=== PATIENT | male | born 1950 | race Caucasian/White ===

== ENCOUNTER 2018-07-17 15:36 | Emergency (ER) | payer MEDICARE ==
[2018-07-17] MEDS ORDERED: SODIUM CHLORIDE 0.9% 1,000 ML IV ONE (15:59)
[2018-07-17] MEDS ORDERED: KETOROLAC 60 MG/2 ML VIAL IVP STA (15:59)
[2018-07-17] MEDS ORDERED: DEXAMETHASONE 10 MG/ML VIAL IV STA (15:59)
[2018-07-17 16:20] LABS: BASOPHILS % (AUTO) 0.6 %; EOSINOPHILS # (AUTO) 0.2 10^3/uL (0.0-0.7); EOSINOPHILS % (AUTO) 2.6 %; HGB - HEMOGLOBIN 11.9 g/dL (14.0-18.0); LYMPHOCYTES # (AUTO) 1.2 10^3/uL (1.5-3.5); LYMPHOCYTES % (AUTO) 19.4 %; MEAN CORPUSCULAR HEMOGLOBIN 30.4 pg (27.0-31.0); MEAN CORPUSCULAR HGB CONC 33.5 g/dL (32.0-36.0); MEAN CORPUSCULAR VOLUME 90.8 fL (80.0-94.0); MEAN PLATELET VOLUME 8.6 fL (7.4-11.4); MONOCYTES # (AUTO) 0.4 10^3/uL (0.0-1.0); MONOCYTES % (AUTO) 6.9 %; NEUTROPHILS # (AUTO) 4.2 10^3/uL (1.5-6.6); NEUTROPHILS % (AUTO) 70.5 %; PLT - PLATELET COUNT 223 10^3/uL (130-450); RED CELL DISTRIBUTION WIDTH 13.7 % (12.0-15.0); WHITE BLOOD COUNT 5.9 x10^3/uL (4.8-10.8)
[2018-07-17 16:30] LABS: ALBUMIN 3.6 g/dL (3.2-5.5); ALBUMIN/GLOBULIN RATIO 1.1 (1.0-2.2); BILIRUBIN,TOTAL 0.8 mg/dL (0.2-1.0); CALCIUM 8.9 mg/dL (8.5-10.3); CREATININE 0.9 mg/dL (0.6-1.2)
--- NOTE | 2018-07-17 16:34 | ED Physician Documentation ---
PD HPI NECK PAIN - Stated complaint Stated Complaint: NECK PX - Chief complaint Chief Complaint: General - History obtained from History obtained from: Patient - History of Present Illness Timing - onset: How many weeks ago (1) Timing - duration: Weeks (1) Timing - details: Abrupt onset, Still present Location: Lower, Right Quality: Pain, Spasm, Sharp Associated symptoms: No: Fever, Weakness, Numbness, Incontinent of urine, Unable to urinate, Hematuria, Incontinent of stool Improves with: Rest, Ice, Position, Meds Worsened by: Movement Contributing factors: Trauma Similar symptoms before: Has not had sx before Recently seen: Not recently seen - Additional information Additional information: 67 y/o male had a near syncopal episode after standing and fell against the wall and injured his neck. He did not loose consciousness when he hit his head. He has had pain in his neck since and the pain has been making it difficult to do his usual things. He has been taking some aleve and ibuprofen withou relief. He denies any numbness or weakness to the right arm or shoulder. He has been having some trouble with dizziness on standing for months and has had abnormal orthostatics documented in the clinic. He reports adequate PO fluid intake but he does drink 2- 3 beers per day. Review of Systems Constitutional: denies: Fever, Chills, Myalgias Eyes: denies: Decreased vision Ears: denies: Ear pain Nose: denies: Rhinorrhea / runny nose, Congestion Throat: denies: Sore throat Cardiac: denies: Chest pain / pressure, Palpitations Respiratory: denies: Dyspnea, Cough GI: denies: Abdominal Pain, Nausea, Vomiting : denies: Dysuria, Frequency Skin: denies: Rash, Lesions, Abrasion (s) Musculoskeletal: denies: Neck pain, Back pain, Extremity pain Neurologic: reports: Near syncope, Other (dizziness on standing). denies: Generalized weakness, Focal weakness, Numbness PD PAST MEDICAL HISTORY - Past Medical History Past Medical History: Yes Endocrine/Autoimmune: Type 1 diabetes GI: GERD HEENT: Chronic vision loss - Past Surgical History Past Surgical History: Yes Ortho: Rotator cuff repair, Other - Present Medications Home Medications: Ambulatory Orders Medication Instructions Recorded Confirmed Cyclobenzaprine [Flexeril] 10 mg PO TID PRN #20 tablet 07/17/18 HYDROcod/ACETAM 5/325 [[place] 5/325] 1 - 2 ea PO Q6H PRN #15 tablet 07/17/18 Insulin Glargine [Lantus Solostar] 16 units SQ DAILY 07/17/18 07/17/18 Insulin Lispro [Humalog] See Protocol SQ TID 07/17/18 07/17/18 Omeprazole 20 mg ORAL DAILY 07/17/18 07/17/18 Simvastatin 20 mg ORAL DAILY 07/17/18 07/17/18 Trazodone HCl 50 mg ORAL DAILY 07/17/18 07/17/18 - Allergies Allergies/Adverse Reactions: Allergies Allergy/AdvReac Type Severity Reaction Status Date / Time No Known Drug Allergies Allergy Verified 07/17/18 15:58 - Social History Does the pt smoke?: No Smoking Status: Never smoker Does the pt drink ETOH?: Yes ETOH Use: Beer Does the pt have substance abuse?: No - Immunizations Immunizations are current?: Yes - POLST Patient has POLST: No PD ED PE NORMAL - Vitals Vital signs reviewed: Yes (hypertensive ) - General General: Alert and oriented X 3, No acute distress, Well developed/nourished - HEENT HEENT: Atraumatic, PERRL, EOMI, Other (both TM's are partially occluded by cerumen. The visualized portions of the TM are normal. ) - Neck Neck: Supple, no meningeal sign, No bony TTP - Cardiac Cardiac: RRR, No murmur - Respiratory Respiratory: No respiratory distress, Clear bilaterally - Abdomen Abdomen: Normal bowel sounds, Soft, Non tender - Back Back: No CVA TTP, No spinal TTP - Derm Derm: Normal color, Warm and dry, No rash - Extremities Extremities: No deformity, No edema - Neuro Neuro: Alert and oriented X 3, business objects architect 2-12 intact, No motor deficit, No sensory deficit, Normal speech Eye Opening: Spontaneous Motor: Obeys Commands Verbal: Oriented GCS Score: 15 - Psych Psych: Normal mood, Normal affect Results - Vitals Vitals: Vital Signs - 24 hr 07/17/18 15:40 Temperature 37 C Heart Rate 72 Respiratory 16 Rate Blood Pressure 154/69 H O2 Saturation 99 Oxygen O2 Source Room air - Labs Labs: Laboratory Tests 07/17/18 07/17/18 07/17/18 16:10 16:10 16:10 WBC 5.9 RBC 3.90 L Hgb 11.9 L Hct 35.4 L MCV 90.8 MCH 30.4 MCHC 33.5 RDW 13.7 Plt Count 223 MPV 8.6 Neut # (Auto) 4.2 Lymph # (Auto) 1.2 L [place] # (Auto) 0.4 Eos # (Auto) 0.2 Baso # (Auto) 0.0 Absolute Nucleated RBC 0.00 Nucleated RBC % 0.0 Sodium 134 L Potassium 4.3 Chloride 101 Carbon Dioxide 25 Anion Gap 8.0 BUN 20 Creatinine 0.9 Estimated GFR (MDRD) 84 L Glucose 348 H Glycated Hemoglobin Estim Average Glucose Calcium 8.9 Total Bilirubin 0.8 AST 17 ALT 14 Alkaline Phosphatase 56 Troponin I < 0.04 Total Protein 7.0 Albumin 3.6 Globulin 3.4 Albumin/Globulin Ratio 1.1 Lipase 19 L Urine Color Urine Clarity Urine pH Ur Specific [place] Urine Protein Urine Glucose (UA) Urine Ketones Urine Occult Blood Urine Nitrite Urine Bilirubin Urine Urobilinogen Ur Leukocyte Esterase Ur Microscopic Review Urine Culture Comments Serum Ketones 07/17/18 07/17/18 07/17/18 16:10 16:10 16:44 WBC RBC Hgb Hct MCV MCH MCHC RDW Plt Count MPV Neut # (Auto) Lymph # (Auto) [place] # (Auto) Eos # (Auto) Baso # (Auto) Absolute Nucleated RBC Nucleated RBC % Sodium Potassium Chloride Carbon Dioxide Anion Gap BUN Creatinine Estimated GFR (MDRD) Glucose Glycated Hemoglobin 8.5 H Estim Average Glucose 197 H Calcium Total Bilirubin AST ALT Alkaline Phosphatase Troponin I Total Protein Albumin Globulin Albumin/Globulin Ratio Lipase Urine Color YELLOW Urine Clarity CLEAR Urine pH 7.0 Ur Specific [place] <=1.005 Urine Protein NEGATIVE Urine Glucose (UA) >=1000 H Urine Ketones NEGATIVE Urine Occult Blood NEGATIVE Urine Nitrite NEGATIVE Urine Bilirubin NEGATIVE Urine Urobilinogen 0.2 (NORMAL) Ur Leukocyte Esterase NEGATIVE Ur Microscopic Review NOT INDICATED Urine Culture Comments NOT INDICATED Serum Ketones NEGATIVE - Rads (name of study) CT cervical spine Radiology: Prelim report reviewed (Impression: 1. No fracture or acute abnormality. 2. spondylosis with degenerative disc and facet disease, as detailed above. There is evidence of associated at least mild canal stenosis at C3-3 and C3 and bony neural foraminal narrowing, greatest at C3-4.), EMP read indepedently, See rad report Procedures - IVC sono (time) 7747 Bedside IVC sono: IVC measures (cm) (1.02), IVC collapsed c insp (cm) (complete), Dehydration (est 1-2 liter deficit) PD MEDICAL DECISION MAKING - ED course Complexity details: reviewed results, re-evaluated patient, considered differential, d/w patient ED course: 67 y/o male with dizziness for months on standing has had a fall and neck pain. He is found to be dehydrated on interrogation of the IVC and he is administered IV saline. He is diabetic and sugar has been running high and he is administered IV regular insulin 5 units. His diagnostic imaging studies show some spinal stenosis and he will need to follow up with his primary. He is prescribed hydrocodone and flexeril. Departure - Departure Disposition: 01 Home, Self Care Clinical Impression: Dehydration Cervical strain, acute Qualifiers: Encounter type: initial encounter Qualified Code(s): S16.1XXA - Strain of muscle, fascia and tendon at neck level, initial encounter Condition: Stable Instructions: ED Sprain Strain Neck, ED Dehydration Prescriptions: Cyclobenzaprine [Flexeril] 10 mg PO TID PRN #20 tablet PRN Reason: Spasms HYDROcod/ACETAM 5/325 [[place] 5/325] 1 - 2 ea PO Q6H PRN #15 tablet PRN Reason: Pain
[2018-07-17] MEDS ORDERED: INSULIN REGULAR HUMAN 100 UNIT/1 ML 10 ML MDV IVP STA (16:52)
[2018-07-17 16:56] LABS: BILIRUBIN,URINE NEGATIVE (NEGATIVE); GLUCOSE, URINE (UA) >=1000 mg/dL (NEGATIVE); KETONES,URINE (UA) NEGATIVE (NEGATIVE); LEUKOCYTE ESTERASE, URINE NEGATIVE (NEGATIVE); NITRITE,URINE NEGATIVE (NEGATIVE); OCCULT BLOOD,URINE NEGATIVE (NEGATIVE); PROTEIN,URINE NEGATIVE (NEGATIVE); UROBILINOGEN,URINE 0.2 (NORMAL) E.U./dL (NORMAL)
[2018-07-17 17:02] LABS: CLARITY,URINE CLEAR (CLEAR)
[2018-07-17 17:08] LABS: HB2 TOTAL 12.6 g/dL; HEMOGLOBIN A1C 0.88 g/dL; HEMOGLOBIN A1C % 8.5 % (4.6-6.2)
--- NOTE | 2018-07-17 17:16 | CT Report ---
Reason: fall neck pain right lower side persistent Procedure Date: 07/17/2018 Accession Number: [id number] / [id number] Procedure: CT - Cervical Spine W/O CPT Code: FULL RESULT: EXAM: CT CERVICAL SPINE WITHOUT CONTRAST DATE: 07/17/2018 04:29 PM. HISTORY: Fall neck pain right lower side persistent. . Fell 7+ days ago, persistent pain and numbness lt COMPARISONS: None. TECHNIQUE: Thin-section axial images were acquired of the cervical spine without contrast. Post-processing: Coronal and sagittal reformats. Other: None. In accordance with CT protocol optimization, one or more of the following dose reduction techniques were utilized for this exam: automated exposure control, adjustment of mA and/or KV based on patient size, or use of iterative reconstructive technique. FINDINGS: Alignment: No scoliosis or spondylolisthesis. Bones: No fracture or bone lesion. Interspace Levels/Facets: Moderate C3-C4 disk space narrowing. Multilevel mild to moderate facet degenerative disease. Mild to moderate multilevel vertebral body spurring. Bridging intervertebral spurring/ossification at C6-T3. There is prominent posterior, midline C2-C3 vertebral body spurring or ligamentous ossification which causes anterior epidural encroachment and narrowing of the AP canal dimension to 6-7 mm. Disk osteophyte complex at C3-C4 with asymmetric prominent vertebral/uncovertebral spurring on the right at C3-C4 resulting in an asymmetric mild canal stenosis and lateral recess encroachment and moderate to severe right and moderate left C3-C4 neuroforaminal narrowing. Central AP canal diameter measures approximately 7 mm. Mild to moderate left C2-C3 and right C4-C5 bony neural foraminal narrowing. Musculature: Normal. No fatty atrophy. Other: No prevertebral soft tissue swelling. Superior mediastinal lymph nodes, maximum short axis is 7 mm. No viktor adenopathy. Substantial bilateral carotid arterial calcifications. The lung apices are clear. IMPRESSION: 1. No fracture or acute abnormality. 2. Spondylosis with degenerative disk and facet disease, as detailed above. There is evidence of associated at least mild canal stenosis at C2-C3 and C3-C4 and bony neural foraminal narrowing, greatest at C3-C4. RADIA
[2018-07-17 18:03] VITALS: BP 136/68
== END 2018-07-17 18:09 | disposition home or self-care (01) ==
LOC: ED 15:36
DX: E86.0 Dehydration (principal); S16.1XXA Strain of muscle, fascia and tendon at neck level, initial encounter; W18.30XA Fall on same level, unspecified, initial encounter; W22.09XA Striking against other stationary object, initial encounter; H61.23 Impacted cerumen, bilateral; E10.9 Type 1 diabetes mellitus without complications
CPT/HCPCS: 36415; 72125; 80053; 81003; 82009; 83036; 83690; 84484; 85025; 96361; 96374; 99284; J1815; 81001; 87086

== ENCOUNTER 2020-02-01 18:16 | Outpatient (CLI) | payer MEDICARE | END 2020-02-01 18:17 | disposition home or self-care (01) | LOC: COV 18:16 | PROVIDERS: ATTEND Family Medicine | DX: R06.02 Shortness of breath (principal); M79.10 Myalgia, unspecified site; R53.83 Other fatigue; R19.7 Diarrhea, unspecified | CPT/HCPCS: 81599 ==

== ENCOUNTER 2021-05-18 15:02 | Emergency (ER) | payer MEDICARE ==
[2021-05-18 15:40] LABS: BASOPHILS # (AUTO) 0.1 10^3/uL (0.0-0.1); EOSINOPHILS # (AUTO) 0.2 10^3/uL (0.0-0.7); EOSINOPHILS % (AUTO) 3.3 %; HCT - HEMATOCRIT 33.1 % (42.0-52.0); HGB - HEMOGLOBIN 10.9 g/dL (14.0-18.0); LYMPHOCYTES # (AUTO) 1.4 10^3/uL (1.5-3.5); LYMPHOCYTES % (AUTO) 27.9 %; MEAN CORPUSCULAR HEMOGLOBIN 30.9 pg (27.0-31.0); MEAN CORPUSCULAR HGB CONC 32.9 g/dL (32.0-36.0); MEAN CORPUSCULAR VOLUME 93.8 fL (80.0-94.0); MEAN PLATELET VOLUME 10.4 fL (7.4-11.4); MONOCYTES # (AUTO) 0.4 10^3/uL (0.0-1.0); MONOCYTES % (AUTO) 7.8 %; NEUTROPHILS # (AUTO) 3.1 10^3/uL (1.5-6.6); NEUTROPHILS % (AUTO) 59.8 %; PLT - PLATELET COUNT 213 10^3/uL (130-450); RED BLOOD COUNT 3.53 10^6/uL (4.70-6.10); RED CELL DISTRIBUTION WIDTH 13.4 % (12.0-15.0); WHITE BLOOD COUNT 5.1 x10^3/uL (4.8-10.8)
[2021-05-18 15:56] LABS: ALBUMIN 3.9 g/dL (3.2-5.5); ALBUMIN/GLOBULIN RATIO 1.3 (1.0-2.2); BILIRUBIN,TOTAL 0.9 mg/dL (0.2-1.0); CREATININE 1.1 mg/dL (0.6-1.2); POTASSIUM 4.8 mmol/L (3.5-5.0)
--- NOTE | 2021-05-18 16:48 | ED Physician Documentation ---
PD HPI SYNCOPE - Stated complaint Stated Complaint: DIZZINESS/WEAKNESS - Chief complaint Chief Complaint: Neuro - History obtained from History obtained from: Patient - Additional information Additional information: 70-year-old gentleman with longstanding diabetes for 60 years has had 2 episodes of syncope, 1 2 weeks ago, and one a week ago. Both had short premonition with periods with maybe 5 seconds of warning. The first when he was of fast food restaurant and fell and hit a glass case and he feels like he injured his neck and his neck is been hurting ever since. The other one was about a week ago, no injury at that time. No associated chest pain or trouble breathing. No associated pedal edema or calf pain. Review of Systems Ten Systems: 10 systems reviewed and negative Constitutional: reports: Reviewed and negative Cardiac: reports: Reviewed and negative Respiratory: reports: Reviewed and negative PD PAST MEDICAL HISTORY - Past Medical History Past Medical History: Yes Cardiovascular: None Respiratory: None Neuro: Peripheral neuropathy Endocrine/Autoimmune: Type 1 diabetes GI: GERD : None HEENT: Chronic vision loss Psych: None Musculoskeletal: Osteoarthritis Derm: None - Past Surgical History Past Surgical History: Yes Ortho: Rotator cuff repair, Other - Present Medications Home Medications: Ambulatory Orders Medication Instructions Recorded Confirmed Insulin Glargine [Lantus Solostar] 16 units SQ DAILY 07/17/18 05/18/21 Insulin Lispro [Humalog] See Protocol SQ TID 07/17/18 05/18/21 Omeprazole 20 mg ORAL DAILY 07/17/18 05/18/21 Simvastatin 20 mg ORAL HS 07/17/18 05/18/21 Trazodone HCl 50 mg ORAL HS 07/17/18 05/18/21 Aspirin EC [Ecotrin] 81 mg PO DAILY 05/18/21 05/18/21 Cholecalciferol [Vitamin D3] 25 mcg PO DAILY 05/18/21 05/18/21 HYDROcod/ACETAM 5/325 [[place] 5/325] 1 - 2 tab PO Q6H PRN #15 tablet 05/18/21 Multivitamin 1 tab ORAL DAILY 05/18/21 05/18/21 - Allergies Allergies/Adverse Reactions: Allergies Allergy/AdvReac Type Severity Reaction Status Date / Time No Known Drug Allergies Allergy Verified 05/18/21 15:16 - Social History Does the pt smoke?: No Smoking Status: Former smoker Does the pt drink ETOH?: Yes ETOH Use: Beer Does the pt have substance abuse?: No - Immunizations Immunizations are current?: Yes - POLST Patient has POLST: No PD ED PE NORMAL - Vitals Vital signs reviewed: Yes - General General: Alert and oriented X 3, No acute distress - HEENT HEENT: PERRL, EOMI - Neck Neck: Supple, no meningeal sign, No bony TTP - Cardiac Cardiac: RRR, No murmur - Respiratory Respiratory: No respiratory distress, Clear bilaterally - Abdomen Abdomen: Normal bowel sounds, Soft, Non tender - Back Back: No CVA TTP, No spinal TTP - Derm Derm: Normal color, Warm and dry - Extremities Extremities: No edema, No calf tenderness / cord - Neuro Neuro: Alert and oriented X 3, Normal speech Results - Vitals Vitals: Vital Signs - 24 hr 05/18/21 05/18/21 05/18/21 15:11 16:26 16:36 Temperature 36.4 C L 36.3 C L Heart Rate 62 64 Heart Rate [ 70 Sitting] Heart Rate [ 66 Standing] Heart Rate [ 62 Supine] Respiratory 16 18 Rate Blood Pressure 148/74 H 144/75 H Blood Pressure 170/115 H [Sitting] Blood Pressure 159/69 H [Standing] Blood Pressure 142/69 H [Supine] O2 Saturation 99 100 05/18/21 18:03 Temperature 37 C Heart Rate 67 Heart Rate [ Sitting] Heart Rate [ Standing] Heart Rate [ Supine] Respiratory 16 Rate Blood Pressure 149/75 H Blood Pressure [Sitting] Blood Pressure [Standing] Blood Pressure [Supine] O2 Saturation 100 Oxygen O2 Source Room air - Labs Labs: Laboratory Tests 05/18/21 05/18/21 05/18/21 15:36 15:36 15:36 WBC 5.1 RBC 3.53 L Hgb 10.9 L Hct 33.1 L MCV 93.8 MCH 30.9 MCHC 32.9 RDW 13.4 Plt Count 213 MPV 10.4 Neut # (Auto) 3.1 Lymph # (Auto) 1.4 L [place] # (Auto) 0.4 Eos # (Auto) 0.2 Baso # (Auto) 0.1 Absolute Nucleated RBC 0.00 Nucleated RBC % 0.0 Sodium 136 Potassium 4.8 Chloride 103 Carbon Dioxide 27 Anion Gap 6.0 BUN 19 Creatinine 1.1 Estimated GFR (MDRD) 66 L Glucose 207 H Calcium 9.0 Total Bilirubin 0.9 AST 19 ALT 17 Alkaline Phosphatase 44 Troponin I High Sens 4.8 Total Protein 7.0 Albumin 3.9 Globulin 3.1 Albumin/Globulin Ratio 1.3 Lipase 25 PD MEDICAL DECISION MAKING - ED course ED course: Orthostatics negative Twelve-lead EKG done at 1520 hrs. discloses normal sinus rhythm with no ST or T wave changes. Rate is 62. I disagree with the computer reading which states "minimal ST elevation in inferior leads" 70-year-old gentleman with 2 syncopal episodes but the last one was a week ago. Work-up here was negative and no ectopy on the monitor. His main concern was neck pain, and a CT was done showing degenerative changes with spinal stenosis but nothing suggestive of acute trauma. Other than pain he has no symptoms such as upper extremity radicular issues to suggest symptomatic spinal stenosis. Discussed with him that he needed to follow-up with his primary care physician and discuss stress testing and/or echocardiography and return if he syncopized again. He is anemic, but not much worse than prior labs. He has iron supplements at home and plans to start taking them. Departure - Departure Disposition: Home, Self Care Clinical Impression: Cervical strain, acute Qualifiers: Encounter type: initial encounter Qualified Code(s): S16.1XXA - Strain of muscle, fascia and tendon at neck level, initial encounter Syncope Qualifiers: Syncope type: unspecified Qualified Code(s): R55 - Syncope and collapse Condition: Good Record reviewed to determine appropriate education?: Yes Instructions: ED Fainting Unkn Cause Follow-Up: Savanah Pressley MD [Primary Care Provider] - Prescriptions: HYDROcod/ACETAM 5/325 [[place] 5/325] 1 - 2 tab PO Q6H PRN #15 tablet PRN Reason: Pain Comments: CT scans of the head and cervical spine do not demonstrate any evidence of recent trauma. You do have arthritis in your neck which causes some spinal stenosis. For the syncope, nothing is really showing up here except for moderate anemia which does not look new necessarily based on old labs, I would recommend you follow-up with Dr. Pressley, consider stress testing and/or echocardiography. Return if it happens again. Prescription sent electronically to [facility] in [place] I am prescribing a short course of narcotic pain medication for you. These are potentially dangerous and addictive medications that should be used carefully. These medications may constipate you. Take an [id number] stool softener (docusate) twice daily with plenty of water while taking these medications. If you go 24 hours without a bowel movement, take [id number] miralax, per package instructions. Do not drink or drive while taking these medications. If you received narcotic or sedating medications while in the emergency department, do not drive for 24 hours. Store this medication in a safe, secure place and out of reach of children. It is a violation of federal law to give or sell this medication to another person or to use in a manner other than prescribed. The ED will not refill narcotic prescriptions, including prescriptions lost or stolen. To dispose of unwanted medications: 1. [facility] [address] in [place] has a medication drop box. They accept prescription medications (in pill form) Thursday through Thursday 9:00 a.m. to 5:00 p.m. 2. The [facility] accepts prescription medications (in pill form only) for disposal year round. Call for more information. 3. Contact the [facility] for the next [facility] sponsored prescription drug collection event. , [phone], or [phone]; Note that many narcotic pain relievers also contain Tylenol/acetaminophen. Please ensure that your total dose of acetaminophen from all sources does not exceed 3 g (3000 mg) per day. Discharge Date/Time: 05/18/21 18:06
--- NOTE | 2021-05-18 17:26 | CT Report ---
PROCEDURE: HEAD WO INDICATIONS: head injury/neck injury TECHNIQUE: Noncontrast 4.5 mm thick angled axial sections acquired from the foramen magnum to the vertex. For r adiation dose reduction, the following was used: automated exposure control, adjustment of mA and/or kV according to patient size. COMPARISON: None. FINDINGS: Image quality: Excellent. CSF spaces: Basal cisterns are patent. No extra-axial fluid collections. Ventricles are normal in size and shape. Brain: No midline shift. No intracranial masses or hemorrhage. Enriquez-white matter interface is norm al. Skull and face: Calvarium and visualized facial bones are intact, without suspicious lesions. Sinuses: Visualized sinuses and mastoids are clear. IMPRESSION: No acute intracranial abnormality. Reviewed by: Tyron Boland on 05/18/2021 4:24 PM [place] Approved by: Tyron Boland on 05/18/2021 4:24 PM [place] Station ID: [id number]
--- NOTE | 2021-05-18 17:33 | CT Report ---
PROCEDURE: CERVICAL SPINE WO INDICATIONS: head injury/neck injury TECHNIQUE: Noncontrast 3 mm thick sections acquired from the skull base to the T4 level. Sagittal and coronal r eformats were then constructed. For radiation dose reduction, the following was used: automated exp osure control, adjustment of mA and/or kV according to patient size. COMPARISON: CT cervical spine July 17, 2018. FINDINGS: Image quality: Excellent. Bones: No fractures or dislocations. Multilevel intervertebral disc height loss and facet arthrosis . There is also ossification of the posterior longitudinal ligament focally at the C2-3 level which m oderately narrows the AP diameter of the spinal canal. Visualized superior ribs are intact. Soft tissues: Prevertebral soft tissues are normal in thickness. No paravertebral hematomas. No ap ical pneumothoraces. Calcification of the carotid arteries. IMPRESSION: 1. No acute cervical spine fracture or traumatic malalignment. 2. Multilevel cervical spondylosis. 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 Reviewed by: Tyron Boland on 05/18/2021 4:32 PM [place] Approved by: Tyron Boland on 05/18/2021 4:32 PM [place] Station ID: [id number]
[2021-05-18] MEDS ORDERED: HYDROcod/ACET 5/325 Prepack 4 PO STA (17:43)
[2021-05-18 18:03] VITALS: BP 149/75
== END 2021-05-18 18:06 | disposition home or self-care (01) ==
LOC: ED 15:02
DX: R55 Syncope and collapse (principal); S16.1XXA Strain of muscle, fascia and tendon at neck level, initial encounter; W18.39XA Other fall on same level, initial encounter; Y92.511 Restaurant or cafe as the place of occurrence of the external cause; D64.9 Anemia, unspecified; M47.812 Spondylosis without myelopathy or radiculopathy, cervical region; M48.02 Spinal stenosis, cervical region; E10.42 Type 1 diabetes mellitus with diabetic polyneuropathy; Z79.82 Long term (current) use of aspirin; Z87.891 Personal history of nicotine dependence
CPT/HCPCS: 36415; 80053; 83690; 84484; 85025; 93005; 99284

== ENCOUNTER 2021-08-08 08:00 | Outpatient (CLI) | payer MEDICARE ==
[2021-08-08 15:57] LABS: BILIRUBIN,URINE NEGATIVE (NEGATIVE); GLUCOSE, URINE (UA) 500 mg/dL (NEGATIVE); KETONES,URINE (UA) NEGATIVE (NEGATIVE); LEUKOCYTE ESTERASE, URINE NEGATIVE (NEGATIVE); NITRITE,URINE NEGATIVE (NEGATIVE); OCCULT BLOOD,URINE NEGATIVE (NEGATIVE); PROTEIN,URINE NEGATIVE (NEGATIVE); UROBILINOGEN,URINE 0.2 (NORMAL) E.U./dL (NORMAL)
[2021-08-08 16:05] LABS: CLARITY,URINE CLEAR (CLEAR)
[2021-08-08 16:25] LABS: CREATININE,URINE 132.3 mg/dL; MICROALBUM/CREATININE RATIO,UR 32.5 ug/mg (<30.0); MICROALBUMIN,URINE 4.3 mg/dL (0-300.0)
== END 2021-08-08 23:59 | disposition home or self-care (01) ==
LOC: LAB.R 08:00
PROVIDERS: ATTEND Internal Medicine
DX: E10.9 Type 1 diabetes mellitus without complications (principal); R80.9 Proteinuria, unspecified; R39.9 Unspecified symptoms and signs involving the genitourinary system
CPT/HCPCS: 81001; 81003; 82043; 82570; 87086

== ENCOUNTER 2021-09-03 09:39 | Outpatient (CLI) | payer MEDICARE ==
--- NOTE | 2021-09-03 16:57 | MRI Report ---
PROCEDURE: Cervical Spine W/O INDICATIONS: Neck pain TECHNIQUE: Noncontrast sagittal T1 spin echo and T2 fast spin echo, sagittal STIR, foraminal oblique sagittal T2 fast spin echo, and axial gradient echo or T2 fast spin echo through the cervical spine. COMPARISON: 05/18/2021 CT cervical spine FINDINGS: Normal cervical spine vertebral body height and alignment. No suspicious focal marrow signal abnormal ity or bone marrow edema. Normal morphology and signal intensity of the cervical cord. There is no sy rinx. Regional soft tissues are grossly unremarkable in the absence of IV contrast. C2-C3: Posterior disc osteophyte complex flattens the ventral cord producing moderate spinal canal s tenosis. Facet and uncovertebral hypertrophy produce mild neural foraminal narrowing on the left. C3-C4: Moderate to severe spinal canal stenosis due to posterior disc-osteophyte complex flattening the ventral cord and posteriorly displacing the cord. There is also buckling of the ligamentum flavu m which flattens the cord dorsally. There is overall near complete circumferential effacement of CSF. No associated cord signal abnormality. Severe right and moderate left neural foraminal stenosis due to facet and uncovertebral hypertrophy. C4-C5: Mild spinal canal stenosis due to posterior disc ossify complex and ligamentum flavum. Severe right and moderate left neural foraminal stenosis due to facet and uncovertebral hypertrophy. C5-C6: No spinal canal stenosis. Mild neural foraminal narrowing on the left. C6-C7: No spinal canal or neural foraminal stenosis. C7-T1: No spinal canal or neural foraminal stenosis. IMPRESSION: Etlqfhpg-[id number] spinal canal stenosis at C3-C4. Moderate spinal canal stenosis at C2-C3. Varying degrees of neural foraminal stenosis, severe on the right at C3-C4 and on the right at C4-C5. Reviewed by: José Miguel Proctor MD on 09/03/2021 4:56 PM PST Approved by: José Miguel Proctor MD on 09/03/2021 4:56 PM PST Station ID: [id number]
== END 2021-09-03 09:40 | disposition home or self-care (01) ==
LOC: DI 09:39
PROVIDERS: ATTEND Internal Medicine
DX: M54.2 Cervicalgia (principal); M48.02 Spinal stenosis, cervical region

== ENCOUNTER 2021-10-20 09:58 | Emergency (ER) | payer MEDICARE ==
--- NOTE | 2021-10-20 10:38 | ED Physician Documentation ---
PD HPI BACK PAIN - Stated complaint Stated Complaint: RIB/BACK PX - Chief complaint Chief Complaint: Trauma Ch/Bk - History obtained from History obtained from: Patient - History of Present Illness Timing - onset: Last night (he states he felt lightheaded when got up to go to the bathroom, his knees/legs lost strength bilaterally and he fell, striking left flank he thought on edge of tub. Pain locally left lower ribs.) Timing - duration: Hours (12-15) Timing - details: Abrupt onset, Still present Location: Lower, Left (posterolateral lower ribs painful with palpation, movement and breathing.) Quality: Pain, Sharp Associated symptoms: No: Fever, Weakness, Numbness Worsened by: Movement, Palpation, Other (deep breathing) Contributing factors: Trauma (fall with direct impact.) Similar symptoms before: Has not had sx before Recently seen: Not recently seen Review of Systems Constitutional: denies: Fever, Chills Nose: denies: Rhinorrhea / runny nose, Congestion Throat: denies: Sore throat Respiratory: denies: Cough GI: denies: Abdominal Pain, Nausea, Vomiting, Diarrhea Skin: denies: Abrasion (s), Laceration (s) Neurologic: denies: Focal weakness, Numbness, Altered mental status, Headache, Head injury PD PAST MEDICAL HISTORY - Past Medical History Cardiovascular: None Respiratory: None Neuro: Peripheral neuropathy Endocrine/Autoimmune: Type 1 diabetes GI: GERD : None HEENT: Chronic vision loss Psych: None Musculoskeletal: Osteoarthritis Derm: None - Past Surgical History Past Surgical History: Yes Ortho: Rotator cuff repair, Other - Present Medications Home Medications: Ambulatory Orders Medication Instructions Recorded Confirmed Insulin Glargine [Lantus Solostar] 10 units SQ DAILY 07/17/18 10/20/21 Insulin Lispro [Humalog] See Protocol SQ TID 07/17/18 10/20/21 Omeprazole 20 mg ORAL DAILY 07/17/18 10/20/21 Simvastatin 20 mg ORAL HS 07/17/18 10/20/21 Trazodone HCl 50 mg ORAL HS 07/17/18 10/20/21 Aspirin EC [Ecotrin] 81 mg PO DAILY 05/18/21 10/20/21 Cholecalciferol [Vitamin D3] 25 mcg PO DAILY 05/18/21 10/20/21 Multivitamin 1 tab ORAL DAILY 05/18/21 10/20/21 Acetaminophen [Acetaminophen Extra 500 mg PO QID PRN #50 tablet 10/20/21 Strength] Naproxen 500 mg PO BID #20 tab.sr 10/20/21 oxyCODONE [Roxicodone] 5 mg PO Q6H PRN #15 tablet 10/20/21 - Allergies Allergies/Adverse Reactions: Allergies Allergy/AdvReac Type Severity Reaction Status Date / Time No Known Drug Allergies Allergy Verified 10/20/21 10:15 - Social History Does the pt smoke?: No Smoking Status: Former smoker Does the pt drink ETOH?: Yes Does the pt have substance abuse?: No - Immunizations Immunizations are current?: Yes - POLST Patient has POLST: No PD ED PE NORMAL - Vitals Vital signs reviewed: Yes - General General: Alert and oriented X 3, Well developed/nourished, Other (appears in discomfort with movement and breathing, with pain posterolateral lower ribs and CVA area. No noted bruising. ) - HEENT HEENT: PERRL, Moist mucous membranes, Pharynx benign - Neck Neck: Supple, no meningeal sign, No adenopathy, C-Spine cleared by NEXUS criteria - Cardiac Cardiac: RRR - Respiratory Respiratory: No respiratory distress, Clear bilaterally - Abdomen Abdomen: Normal bowel sounds, Soft, Non tender, Non distended - Back Back: No spinal TTP - Derm Derm: Normal color, Warm and dry - Extremities Extremities: No tenderness to palpate, Normal ROM s pain, No edema, No calf tenderness / cord - Neuro Neuro: Alert and oriented X 3, No motor deficit, No sensory deficit, Normal speech Eye Opening: Spontaneous Motor: Obeys Commands Verbal: Oriented GCS Score: 15 Results - Vitals Vitals: Vital Signs - 24 hr 10/20/21 10/20/21 10/20/21 10:09 10:37 12:29 Temperature 36.2 C L 37 C Heart Rate 84 75 66 Respiratory 24 17 16 Rate Blood Pressure 122/46 L 136/62 H 134/62 H O2 Saturation 100 100 99 10/20/21 14:20 Temperature Heart Rate 68 Respiratory 18 Rate Blood Pressure 143/71 H O2 Saturation 99 Oxygen O2 Source Room air - Labs Labs: Laboratory Tests 10/20/21 10/20/21 11:15 11:15 WBC 7.9 RBC 3.71 L Hgb 11.5 L Hct 34.8 L MCV 93.8 MCH 31.0 MCHC 33.0 RDW 13.2 Plt Count 186 MPV 10.5 Neut # (Auto) 6.4 Lymph # (Auto) 0.9 L Garza # (Auto) 0.6 Eos # (Auto) 0.1 Baso # (Auto) 0.0 Absolute Nucleated RBC 0.00 Nucleated RBC % 0.0 Sodium 134 L Potassium 4.3 Chloride 102 Carbon Dioxide 24 Anion Gap 8.0 BUN 20 Creatinine 0.8 Estimated GFR (MDRD) 95 Glucose 148 H Calcium 8.7 Magnesium 1.8 Total Bilirubin 0.7 AST 23 ALT 18 Alkaline Phosphatase 39 L Total Protein 6.5 L Albumin 3.7 Globulin 2.8 Albumin/Globulin Ratio 1.3 Lipase 21 L - Rads (name of study) chest CT Radiology: Prelim report reviewed, Discussed with rads (nondisplaced fractures left ribs 11 and 12, and also rim apical PTX. ), See rad report PD MEDICAL DECISION MAKING - ED course Complexity details: reviewed results (patient is 12-18 hours s/p fall with rib fractures and small apical PTX. Sats are good. WOuld not expect suddent change at this point, so repeat CXR in 12-18 hours. ), re-evaluated patient (pain much improved with meds here. ), considered differential, d/w patient, d/w wallpaper consultant (talked with surgery gynaecological oncologist, who felt follow up outpt is reasonable.) ED course: NO real mechanism for f/u in office and getting CXR< so will have him return to ER tomorrow for recheck symptoms, sats, and CXR (does not need repeat CT). Departure - Departure Disposition: 01 Home, Self Care Clinical Impression: Postural dizziness with near syncope Chest wall contusion Qualifiers: Encounter type: initial encounter Laterality: left Qualified Code(s): S20.212A - Contusion of left front wall of thorax, initial encounter Rib fractures Qualifiers: Encounter type: initial encounter Fracture type: closed Laterality: left Qualified Code(s): S22.42XA - Multiple fractures of ribs, left side, initial encounter for closed fracture Pneumothorax Qualifiers: Pneumothorax type: traumatic Encounter type: initial encounter Qualified Code(s): S27.0XXA - Traumatic pneumothorax, initial encounter Condition: Stable Record reviewed to determine appropriate education?: Yes Instructions: ED Fx Rib, ED Pneumothorax Blunt Trauma Follow-Up: Savanah Pressley MD [Primary Care Provider] - Prescriptions: Acetaminophen [Acetaminophen Extra Strength] 500 mg PO QID PRN #50 tablet PRN Reason: Pain Naproxen 500 mg PO BID #20 tab.sr oxyCODONE [Roxicodone] 5 mg PO Q6H PRN #15 tablet PRN Reason: Pain Comments: The CT scan showed fractures of the lowest ribs #11 and 12 back in the area you are hurting. There is also is a small pneumothorax which is air outside of the lung from a partial puncture of some air sacs in the lung near the injury. The pneumothorax is quite small and should absorb on its own over several days. The chest wall and rib pain will be most prominently sore for the first week or so when then gradually resolve over about a month. Activity as tolerated but in particular no vigorous activity, heavy lifting, push pull or such for the first week or so. Walking and light activity is okay. Use some anti-inflammatory such as naproxen twice daily with food for the next 7 to 10 days. To that add Tylenol every 4-6 hours regularly for pain. To that add oxycodone every 6 hours if needed for worse pain. We would like to ensure that the pneumothorax is not getting bigger within the next day or so. Return to the ER tomorrow morning to let them know you are here for follow-up x-ray for the pneumothorax. Meanwhile if you have increasing pain or trouble breathing lightheadedness or other concerns before then, return to the ER. I transmitted your prescriptions to [facility] pharmacy in [place]. I am prescribing a short course of narcotic pain medication for you. These are potentially dangerous and addictive medications that should be used carefully. These medications may constipate you. Take an [id number] stool softener such as docusate twice daily with plenty of water while taking these medications. If you go 24 hours without a bowel movement, take [id number] MiraLAX, per package instructions. Do not drink or drive while taking these medications. If you received narcotic or sedating medications while in the emergency department do not drive for 24 hours. Store this medication in a safe, secure place and out of reach of children. It is a violation of federal law to give or sell this medication to another person or to use in a manner other than prescribed. The ED will not refill narcotic prescriptions, including prescriptions lost or stolen. You can dispose of unwanted medications at the [facility]'s office or at several pharmacies such as [facility]. Discharge Date/Time: 10/20/21 14:35
[2021-10-20] MEDS: ACETAMINOPHEN 325 MG TABLET PO STA (11:18)
[2021-10-20] MEDS: KETOROLAC 30 MG/ML VIAL IVP STA (11:19)
[2021-10-20] MEDS: MORPHINE 2 MG/ML CARPUJECT IVP STA (11:20)
[2021-10-20 11:23] LABS: BASOPHILS % (AUTO) 0.3 %; EOSINOPHILS # (AUTO) 0.1 10^3/uL (0.0-0.7); EOSINOPHILS % (AUTO) 0.6 %; HCT - HEMATOCRIT 34.8 % (42.0-52.0); HGB - HEMOGLOBIN 11.5 g/dL (14.0-18.0); LYMPHOCYTES # (AUTO) 0.9 10^3/uL (1.5-3.5); LYMPHOCYTES % (AUTO) 10.7 %; MEAN CORPUSCULAR VOLUME 93.8 fL (80.0-94.0); MEAN PLATELET VOLUME 10.5 fL (7.4-11.4); MONOCYTES # (AUTO) 0.6 10^3/uL (0.0-1.0); MONOCYTES % (AUTO) 7.3 %; NEUTROPHILS # (AUTO) 6.4 10^3/uL (1.5-6.6); NEUTROPHILS % (AUTO) 80.8 %; PLT - PLATELET COUNT 186 10^3/uL (130-450); RED BLOOD COUNT 3.71 10^6/uL (4.70-6.10); RED CELL DISTRIBUTION WIDTH 13.2 % (12.0-15.0); WHITE BLOOD COUNT 7.9 x10^3/uL (4.8-10.8)
[2021-10-20 11:37] LABS: ALBUMIN 3.7 g/dL (3.2-5.5); ALBUMIN/GLOBULIN RATIO 1.3 (1.0-2.2); BILIRUBIN,TOTAL 0.7 mg/dL (0.2-1.0); CALCIUM 8.7 mg/dL (8.5-10.3); CREATININE 0.8 mg/dL (0.6-1.2); MAGNESIUM 1.8 mg/dL (1.7-2.8); POTASSIUM 4.3 mmol/L (3.5-5.0); TOTAL PROTEIN 6.5 g/dL (6.7-8.2)
[2021-10-20] MEDS ORDERED: iohexoL-300 100 ML VIAL ONE (12:01)
[2021-10-20] MEDS: iohexoL-300 100 ML VIAL IVP ONE (12:20)
--- NOTE | 2021-10-20 13:29 | CT Report ---
PROCEDURE: CT chest with contrast INDICATIONS: fall with injury left lower ribs/chest CONTRAST: IV CONTRAST: Isovue 300 ml: 100 PO CONTRAST: *NO PO CONTRAST TECHNIQUE: After the administration of intravenous contrast, 1 mm axial images were acquired from the pulmonary apices through the posterior costophrenic angles. Axial 5 mm soft tissue kernel reconstructions were performed as well as 8 mm axial MIP and coronal and sagittal 5 mm reformations. For radiation dose reduction, the following was used: automated exposure control, adjustment of mA and/or kV according to patient size. COMPARISON: None. FINDINGS: Image quality: Excellent. Lungs and pleura: Small pulmonary contusion left lower lobe associated with left 11th 12th rib fractu res. Tiny left-sided associated pneumothorax measures 6 mm in thickness. Right lung and pleural space clear. Mediastinum: Heart size is normal. No pericardial effusion. No mediastinal or hilar adenopathy by size criteria. Thoracic aorta and central pulmonary arteries are normal in size. Esophagus is amy l in caliber. No hiatal hernia. Bones and chest wall: Comminuted left posterior lateral 12th rib fracture. Additional displaced left 11th rib fracture. Underlying pulmonary edema reflects small contusion. Old healed left posterior lat eral fractures noted as well. Abdomen: Visualized upper abdominal solid organs appear normal. Upper abdominal bowel loops are nor mal in caliber. IMPRESSION: 1. Displaced left 11th and 12th rib fractures associated with this tiny left anterior hydropneumothor ax and small pulmonary contusion. 2. Additional left-sided old healed rib fractures. Note: Critical results were discussed with Dr. Parra at 12:26 PM AK time on 10/20/2021 Reviewed by: Rickey Naik MD on 10/20/2021 12:27 PM AKST Approved by: Rickey Naik MD on 10/20/2021 12:27 PM AKST Station ID: [id number]
[2021-10-20 14:21] VITALS: BP 143/71
== END 2021-10-20 14:35 | disposition home or self-care (01) ==
LOC: ED 09:58
DX: S22.42XA Multiple fractures of ribs, left side, initial encounter for closed fracture (principal); S27.0XXA Traumatic pneumothorax, initial encounter; S27.321A Contusion of lung, unilateral, initial encounter; S20.212A Contusion of left front wall of thorax, initial encounter; W18.39XA Other fall on same level, initial encounter; W22.09XA Striking against other stationary object, initial encounter; Y93.01 Activity, walking, marching and hiking; Y92.002 Bathroom of unspecified non-institutional (private) residence as the place of occurrence of the external cause; R42 Dizziness and giddiness; R55 Syncope and collapse; E10.42 Type 1 diabetes mellitus with diabetic polyneuropathy; Z79.4 Long term (current) use of insulin; Z79.82 Long term (current) use of aspirin; Z87.891 Personal history of nicotine dependence
CPT/HCPCS: 36415; 71260; 80053; 83690; 83735; 85025; 93005; 96374; 96375; 99284; A9270; Q9967

== ENCOUNTER 2021-10-21 14:16 | Emergency (ER) | payer MEDICARE ==
[2021-10-21 14:27] VITALS: BP 148/49
--- NOTE | 2021-10-21 14:50 | XRAY Report ---
PROCEDURE: Chest 2 View X-Ray INDICATIONS: re-eval ptx TECHNIQUE: 2 view(s) of the chest. COMPARISON: Reference is made to the CT chest dated October 20, 2021. FINDINGS: SUPPORT DEVICES: None. LUNGS/PLEURA: Right pleural thickening/scarring. Coarsened interstitial markings. Small left upper pn eumothorax, measuring up to 1.2 cm in width. No focal consolidation or pleural effusion. MEDIASTINUM: The cardiomediastinal silhouette is within normal limits. BONES/SOFT TISSUES: No acute abnormality. Left eighth and ninth rib fractures. IMPRESSION: 1.Persistent left apical pneumothorax. Reviewed by: Erik Patel MD on 10/21/2021 2:48 PM PST Approved by: Erik Patel MD on 10/21/2021 2:48 PM PST Station ID: [id number]
--- NOTE | 2021-10-21 15:01 | ED Physician Documentation ---
History of Present Illness - Stated complaint Stated Complaint: FOLLOWUP FROM YESTERDAY - Chief complaint Chief Complaint: Resp - History obtained from History obtained from: Patient - Additonal information Additional information: The patient comes to the emergency department chief complaint of here for recheck of pneumothorax". The patient was seen yesterday after a fall 1940 8 hours prior which resulted in left 11th and 12th rib fractures and a small left pneumothorax. The patient states his breathing is not any worse and in fact, he has never had any breathing complaints. He states that he was not able to picker and sorter load and unload his pain medication from the pharmacy yesterday, however, and that he continues to have pain in his ribs, which is worsening. Patient denies any cough or fever. No new injury. He denies any other complaints at this time. Review of Systems Ten Systems: 10 systems reviewed and negative Constitutional: reports: Reviewed and negative Eyes: reports: Reviewed and negative Ears: reports: Reviewed and negative Nose: reports: Reviewed and negative Throat: reports: Reviewed and negative Cardiac: reports: Chest pain / pressure Respiratory: reports: Reviewed and negative. denies: Dyspnea, Cough GI: reports: Reviewed and negative : reports: Reviewed and negative Skin: reports: Reviewed and negative Musculoskeletal: reports: Reviewed and negative Neurologic: reports: Reviewed and negative Psychiatric: reports: Reviewed and negative Endocrine: reports: Reviewed and negative Immunocompromised: reports: Reviewed and negative PD PAST MEDICAL HISTORY - Past Medical History Cardiovascular: None Respiratory: None Neuro: Peripheral neuropathy Endocrine/Autoimmune: Type 1 diabetes GI: GERD : None HEENT: Chronic vision loss Psych: None Musculoskeletal: Osteoarthritis Derm: None - Past Surgical History Past Surgical History: Yes Ortho: Rotator cuff repair, Other - Present Medications Home Medications: Ambulatory Orders Medication Instructions Recorded Confirmed Insulin Glargine [Lantus Solostar] 10 units SQ DAILY 07/17/18 10/20/21 Insulin Lispro [Humalog] See Protocol SQ TID 07/17/18 10/20/21 Omeprazole 20 mg ORAL DAILY 07/17/18 10/20/21 Simvastatin 20 mg ORAL HS 07/17/18 10/20/21 Trazodone HCl 50 mg ORAL HS 07/17/18 10/20/21 Aspirin EC [Ecotrin] 81 mg PO DAILY 05/18/21 10/20/21 Cholecalciferol [Vitamin D3] 25 mcg PO DAILY 05/18/21 10/20/21 Multivitamin 1 tab ORAL DAILY 05/18/21 10/20/21 Acetaminophen [Acetaminophen Extra 500 mg PO QID PRN #50 tablet 10/20/21 Strength] Naproxen 500 mg PO BID #20 tab.sr 10/20/21 oxyCODONE [Roxicodone] 5 mg PO Q6H PRN #15 tablet 10/20/21 - Allergies Allergies/Adverse Reactions: Allergies Allergy/AdvReac Type Severity Reaction Status Date / Time No Known Drug Allergies Allergy Verified 10/21/21 14:24 - Social History Does the pt smoke?: No Smoking Status: Former smoker Does the pt drink ETOH?: Yes Does the pt have substance abuse?: No - Immunizations Immunizations are current?: Yes - POLST Patient has POLST: No PD ED PE NORMAL - Vitals Vital signs reviewed: Yes - General General: Alert and oriented X 3, No acute distress, Well developed/nourished - HEENT HEENT: Atraumatic, PERRL, EOMI, Moist mucous membranes - Neck Neck: Supple, no meningeal sign - Cardiac Cardiac: RRR, No murmur, Strong equal pulses - Respiratory Respiratory: No respiratory distress, Clear bilaterally - Derm Derm: Normal color, Warm and dry, No rash - Extremities Extremities: No deformity, No edema - Neuro Neuro: Alert and oriented X 3, 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 This did not appear to be significantly changed since yesterday, and since the patient had no respiratory complaints and good oxygen saturation, I felt he was stable for discharge home. We have discussed that the patient should picker and sorter load and unload his pain medication at the pharmacy soon as possible, so he can have good pain control and breathe more deeply to avoid pneumonia. We discussed that the patient begins to have increasing shortness of breath, he should return to the emergency department immediately. Otherwise, he may follow-up as needed with his primary care physician. Departure - Departure Disposition: 01 Home, Self Care Clinical Impression: Pneumothorax on left Condition: Stable Instructions: ED Pneumothorax Blunt Trauma Comments: Your chest x-ray shows essentially unchanged pneumothorax on the left compared with yesterday. The pneumothorax continues to be very small, and will most likely resolve on its own. It is very important that you try to keep your rib p ain under control so you can breathe more deeply and avoid getting pneumonia, which is the other common complication of rib fractures. Please picker and sorter load and unload your pain medication at the pharmacy today. If you develop fevers, or if you begin to have increasingly severe shortness of breath, please return to the emergency department immediately. You have been treated with narcotic pain medication in the emergency department today. Please do not drive for the next 8 hours. Discharge Date/Time: 10/21/21 15:06
[2021-10-21] MEDS: ONDANSETRON ODT 4 MG TABLET TL STA (15:06)
[2021-10-21] MEDS: oxyCODONE 5 MG TABLET PO STA (15:06)
== END 2021-10-21 15:06 | disposition home or self-care (01) ==
LOC: ED 14:16
DX: J93.9 Pneumothorax, unspecified (principal); Z87.891 Personal history of nicotine dependence
CPT/HCPCS: 71046; 99282; 99283; A9270; Q0162

== ENCOUNTER 2022-01-14 08:00 | Outpatient (CLI) | payer MEDICARE ==
[2022-01-14 16:20] LABS: BASOPHILS % (AUTO) 0.8 %; EOSINOPHILS # (AUTO) 0.2 10^3/uL (0.0-0.7); EOSINOPHILS % (AUTO) 3.4 %; HCT - HEMATOCRIT 36.2 % (42.0-52.0); HGB - HEMOGLOBIN 11.5 g/dL (14.0-18.0); LYMPHOCYTES # (AUTO) 1.6 10^3/uL (1.5-3.5); LYMPHOCYTES % (AUTO) 31.8 %; MEAN CORPUSCULAR HGB CONC 31.8 g/dL (32.0-36.0); MEAN CORPUSCULAR VOLUME 94.5 fL (80.0-94.0); MEAN PLATELET VOLUME 11.1 fL (7.4-11.4); MONOCYTES # (AUTO) 0.4 10^3/uL (0.0-1.0); NEUTROPHILS # (AUTO) 2.9 10^3/uL (1.5-6.6); NEUTROPHILS % (AUTO) 56.6 %; PLT - PLATELET COUNT 246 10^3/uL (130-450); RED BLOOD COUNT 3.83 10^6/uL (4.70-6.10); RED CELL DISTRIBUTION WIDTH 13.7 % (12.0-15.0)
[2022-01-14 16:44] LABS: ALBUMIN 3.8 g/dL (3.2-5.5); ALBUMIN/GLOBULIN RATIO 1.2 (1.0-2.2); ALKALINE PHOSPHATASE 51 IU/L (42-121); ALT ALANINE AMINOTRANSFERASE 15 IU/L (10-60); AST ASPARTATE AMINOTRANSFERASE 19 IU/L (10-42); BILIRUBIN,TOTAL 0.9 mg/dL (0.2-1.0); BUN - BLOOD UREA NITROGEN 23 mg/dL (6-20); CALCIUM 9.3 mg/dL (8.5-10.3); CARBON DIOXIDE - CO2 26 mmol/L (21-32); CHLORIDE 101 mmol/L (101-111); CHOLESTEROL 181 mg/dL; CK- CREATINE KINASE 64 IU/L (22-269); GFR - MDRD 73 (>89); GLUCOSE 308 mg/dL (70-100); HDL CHOLESTEROL 90 mg/dL; LDL CHOLESTEROL,CALCULATED 76 mg/dL; LDL/HDL RATIO 0.8 (<3.6); POTASSIUM 4.7 mmol/L (3.5-5.0); SODIUM 133 mmol/L (135-145); TRIGLYCERIDES 76 mg/dL; VLDL CHOLESTEROL 15 mg/dL
[2022-01-14 16:51] LABS: CREATININE,URINE 131.2 mg/dL; MICROALBUM/CREATININE RATIO,UR 17.5 ug/mg (<30.0); MICROALBUMIN,URINE 2.3 mg/dL (0-300.0)
[2022-01-14 21:27] LABS: ESTIMATED AVERAGE GLUCOSE 163 mg/dL (70-100); HEMOGLOBIN A1c% 7.3 % (4.27-6.07)
== END 2022-01-14 08:01 | disposition home or self-care (01) ==
LOC: LAB.R 08:00
PROVIDERS: ATTEND Internal Medicine
DX: Z00.00 Encounter for general adult medical examination without abnormal findings (principal); D64.9 Anemia, unspecified; E10.9 Type 1 diabetes mellitus without complications; Z86.010 Personal history of colon polyps
CPT/HCPCS: 80053; 80061; 82043; 82550; 82570; 83036; 83721; 84443; 85025

== ENCOUNTER 2022-07-10 14:55 | Outpatient (CLI) | payer MEDICARE ==
[2022-07-10 16:11] LABS: CALCIUM 9.7 mg/dL (8.5-10.3); CREATININE 0.9 mg/dL (0.6-1.2); POTASSIUM 4.2 mmol/L (3.5-5.0)
[2022-07-10 20:03] LABS: ESTIMATED AVERAGE GLUCOSE 163 mg/dL (70-100); HEMOGLOBIN A1c% 7.3 % (4.27-6.07)
== END 2022-07-10 23:59 | disposition home or self-care (01) ==
LOC: LAB.R 14:55
PROVIDERS: ATTEND Internal Medicine
DX: E10.9 Type 1 diabetes mellitus without complications (principal); M54.2 Cervicalgia
CPT/HCPCS: 80048; 83036

== ENCOUNTER 2022-09-29 10:44 | Outpatient (CLI) | payer MEDICARE ==
--- NOTE | 2022-09-29 12:35 | Ultrasound Report ---
PROCEDURE: Head or Neck Soft Tissue INDICATIONS: MASS OF NECK TECHNIQUE: Real time scanning was performed of the neck region of interest, with image documentation . COMPARISON: None. FINDINGS: There is a focus of decreased echogenicity posterior to the air within the right lower neck approximately 3 mm below the skin surface. There is mild appearance of increased vascularity. Border line prominent adjacent lymph nodes are present largest measuring 8 mm. IMPRESSION: Focus of decreased echogenicity within the area of concern with increased vascularity. Is overall non specific. This could represent a focus of infection or inflammation such as abscess. Borderline enlar ged lymph nodes are present suggestive to be reactive in nature. However, recommend interval follow-u p to document resolution and exclude presence of underlying mass lesion of potential noninfectious/no ninflammatory etiology. Reviewed by: Kandi Saini MD on 09/29/2022 12:34 PM PST Approved by: Kandi Saini MD on 09/29/2022 12:34 PM PST Station ID: [id number]
== END 2022-09-29 10:45 | disposition home or self-care (01) ==
LOC: DI 10:44
PROVIDERS: ATTEND Internal Medicine
DX: R22.1 Localized swelling, mass and lump, neck (principal)

== ENCOUNTER 2022-12-22 13:07 | Outpatient (CLI) | payer MEDICARE ==
--- NOTE | 2022-12-22 15:34 | XRAY Report ---
PROCEDURE: Ribs Bilat w/Chest 4 View INDICATIONS: PALPITATIONS TECHNIQUE: 4 views of the right ribs were acquired, along with a single view chest. COMPARISON: None FINDINGS: Surgical changes and devices: Generator projects over the left chest wall.. Bones and chest wall: No acute fractures or dislocations. Chronic left eighth and ninth posterior r ib fractures. No suspicious bony lesions. Overlying soft tissues appear unremarkable. Lungs and pleura: No pleural effusions or pneumothorax. Lungs appear clear. Mediastinum: Mediastinal contours appear normal. Heart size is normal. IMPRESSION: No acute, displaced rib fracture. Reviewed by: Hermelindo Calix on 12/22/2022 3:33 PM PDT Approved by: Hermelindo Calix on 12/22/2022 3:33 PM PDT Station ID: [id number]
== END 2022-12-22 13:08 | disposition home or self-care (01) ==
LOC: DI 13:07
PROVIDERS: ATTEND Internal Medicine
DX: R00.2 Palpitations (principal)

== ENCOUNTER 2024-05-19 06:21 | Day surgery (SDC) | payer MEDICARE ==
[2024-05-19] MEDS: LACTATED RINGERS 1,000 ML IV ONE ×2 (07:01→08:14)
[2024-05-19] MEDS ORDERED: PROPOFOL 500 MG/50 ML 500 MG/50 ML VIAL ONE (07:13)
[2024-05-19] MEDS ORDERED: LIDOCAINE-MPF 2% 5 ML VIAL ONE (07:13)
--- NOTE | 2024-05-19 07:26 | ANESTHESIA ---
Pre-Anesthesia VS, & Labs - Diagnosis colon polyp history - Procedure colonoscopy Vital Signs: Temp Pulse Resp BP Pulse Ox O2 Flow Rate 36.3 C L 87 17 102/53 L 99 05/19/24 06:30 05/19/24 06:30 05/19/24 06:30 05/19/24 06:30 05/19/24 06:30 Height: 6 ft 1 in Weight (kg): 73.1 kg Body Mass Index: 21.2 BMI Classification: Normal - NPO Other (prep as directed) - Lab Results Current Lab Results: Laboratory Tests 05/19/24 06:47: POC Whole Bld Glucose 238 H Home Medications and Allergies Insulin Glargine [Lantus Solostar] 10 units SQ DAILY 07/17/18 Insulin Lispro [Humalog] See Protocol SQ TID 07/17/18 Simvastatin 20 mg ORAL HS 07/17/18 Trazodone HCl 50 mg ORAL HS 07/17/18 Aspirin EC [Ecotrin] 81 mg PO DAILY 05/18/21 Cholecalciferol [Vitamin D3] 25 mcg PO DAILY 05/18/21 Multivitamin 1 tab ORAL DAILY 05/18/21 Allergies/Adverse Reactions: Allergies Allergy/AdvReac Type Severity Reaction Status Date / Time No Known Drug Allergies Allergy Verified 10/21/21 14:24 Anes History & Medical History - Anesthetic History Anesthesia Complications: reports: No previous complications - Medical History Cardiovascular: reports: None Pulmonary: reports: None Gastrointestinal: reports: GERD, Colon polyps Urinary: reports: None Neuro: reports: Peripheral neuropathy Musculoskeletal: reports: Osteoarthritis Endocrine/Autoimmune: reports: Type 1 diabetes Blood Disorders: reports: None Skin: reports: None Smoking Status: Former smoker - Surgical History Eyes Ears Nose Throat (EENT): reports: Cataracts, Tonsil/Adenoidectomy Orthopedic: reports: Rotator cuff repair Dermatologic: reports: Other Exam General: Alert, Oriented x3 Mouth Opening: Greater than 4 Fingerbreadths Neck Mobility: Normal Mallampati classification: II Thyromental Distance: greater than 6 cm Respiratory: Lungs clear Cardiovascular: Regular rate Plan Anesthesia Type: Total IV Consent for Procedure(s) Verified and Reviewed: Yes Code Status: Attempt Resuscitation ASA classification: 2-Mild systemic disease Is this case an emergency?: No
[2024-05-19] MEDS ORDERED: GLYCOPYRROLATE 1 MG/5 ML VIAL ONE (07:51)
[2024-05-19 08:40] VITALS: BP 96/47; O2SAT 98
--- NOTE | 2024-05-19 08:47 | ANESTHESIA POST OP EVALUATION ---
Anesthesia Post Eval - Post Anesthesia Eval Vitals: Last Vital Signs Temp 36.1 C L 05/19/24 08:14 Pulse 76 05/19/24 08:38 Resp 16 05/19/24 08:38 BP 96/47 L 05/19/24 08:38 Pulse Ox 98 05/19/24 08:38 O2 Flow Rate CV Function Including HR & BP: Stable Pain Control: Satisfactory Nausea & Vomiting: Negative Mental Status: Baseline Respiratory Status: Airway Patent Hydration Status: Satisfactory Anesthesia Complications: None
== END 2024-05-19 06:22 | disposition home or self-care (01) ==
LOC: SDS 06:21
PROVIDERS: ATTEND Surgery
PROC: 0DBL8ZX Excision of Transverse Colon, Via Natural or Artificial Opening Endoscopic, Diagnostic (ICD-10-PCS; 2024-05-19)
PROC: 0DBK8ZX Excision of Ascending Colon, Via Natural or Artificial Opening Endoscopic, Diagnostic (ICD-10-PCS; principal; 2024-05-19 07:30)
DX: D12.2 Benign neoplasm of ascending colon (principal); D12.3 Benign neoplasm of transverse colon; E10.9 Type 1 diabetes mellitus without complications
CPT/HCPCS: 45380; J7120